=== PATIENT | male | born 1975 | race Caucasian/White ===

== ENCOUNTER 2024-02-05 21:04 | Emergency (ER) | payer OTHER, SELFPAY ==
[2024-02-05 21:06] VITALS: BP 150/101
[2024-02-05 21:43] VITALS: BMI 36.0
[2024-02-05 21:47] VITALS: BP 150/98
--- NOTE | 2024-02-05 21:56 | ED.GENMED ---
History of Present Illness
General
Chief Complaint: DVT/Possible Blood Clot
Source: patient
Time Seen by Provider: 02/05/24 21:50
History of Present Illness
History of Present Illness:
48yoM with a history of depression and ADHD presenting for evaluation of right calf swelling and pain. Symptoms began 4 days ago and have been gradually worsening. He denies any trauma to the area or inciting incident. Patient was seen at urgent
care today and was referred to the ED to rule out a DVT. Patient denies any chest pain or shortness of breath. No personal or family history of VTE. No recent travel.
Phy Exam
General Physical Exam
General Presentation: well appearing and no apparent distress
General age: appears stated age
General Skin: warm and dry
General Habitus: normal
General Mental: alert
ENT Exam
ENT Exam: normocephalic
Pulmonary Exam
Pulmonary Exam: no respiratory distress
Patricio Coma Scale
Eye Opening: Spontaneous
Verbal Response: Oriented
Motor Response: Obeys Commands
GCS Total Score: 15
Musculoskeletal Exam
Musculoskeletal Exam: other (2+ pitting edema to the R calf. +Ceci's sign. ROM of knee and ankle intact. 2+ DP pulse and sensation intact. )
Skin Exam
Skin Exam: normal color and warm/dry
Psychiatric Exam
Psychiatric Exam: normal mood/affect
Course
Orders/Labs/Results
Orders:
Orders
02/05/24 21:31
Venous Doppler Lwr Ext Rt [US Perip Venous LOWER Ext RT] Urgent
Comment:
Reason For Exam: swelling/pain
02/05/24 22:02
Complete Blood Count/With Diff Urgent
Comprehensive Metabolic Panel Urgent
PT/INR [Prothrombin Time] Urgent
02/05/24 23:00
Apixaban [Eliquis] 10 mg PO BID
Abnormal Lab Results
02/05/24
22:02
RBC 4.31 L 10^6/uL
(4.70-6.10)
MCH 32.5 H pg
(27.0-31.0)
Absolute Monos (auto) 1.0 H 10^3/uL
(0.1-0.6)
Monocytes % 11.5 H %
(1.7-9.3)
Glucose 109 H mg/dl
(70-99)
02/05/24 22:02
02/05/24 22:02
Vital Signs
Initial and Last Documented VS:
Initial Vital Signs
Temp Pulse Resp BP Pulse Ox
98.1 F 82 20 150/101 98
02/05/24 21:06 02/05/24 21:06 02/05/24 21:06 02/05/24 21:06 02/05/24 21:06
Last Documented Vital Signs
Temp Pulse Resp BP Pulse Ox
98.1 F 84 22 120/81 98
02/05/24 21:06 02/05/24 23:00 02/05/24 23:00 02/05/24 23:00 02/05/24 23:00
MDM/Problems Addressed
Differential Diagnosis Includes:
48yoM here with atraumatic R calf pain x 4 days. Sent here by urgent care for concern for DVT. No CP/SOB. He is afebrile and hemodynamically stable. He is well-appearing in no acute distress. There is localized swelling to the right calf on exam.
Compartments soft. RLE eurovascularly intact. Differential diagnosis includes but is not limited to: DVT, superficial thrombophlebitis, dependent edema, Armendariz's cyst
Initial ED plan: Check CBC, CMP, coags, and venous duplex.
*Critical Care Note
Total Time (30-74mins, 75-104mins- exclusive of procedures): Not Applicable
Update Note
Update Note:
Venous duplex is positive for DVT in the right posterior tibial and popliteal veins. No proximal clot noted. No indication for hospitalization. He was started on a course of Eliquis. First dose given in the ED. Unclear precipitant for DVT. He
was advised to follow-up with his PCP for screening for clotting disorders. Strict ED return precautions discussed including chest pain and shortness of breath. He expressed understanding and is agreeable to plan. Patient discharged in stable
condition.
ED Attending Note
-
Portions of this chart may have been created with voice recognition software.� Occasional wrong word or��sound alike� substitutions may have occurred due to the inherent limitations of voice recognition software.
Discharge Plan
Departure
Patient Disposition: Home (Routine Discharge)
Date of Disposition: 02/05/24
Time of Disposition: 23:08
Patient with high blood pressure during this ER visit?: Yes
Discharge Problem:
Deep vein thrombosis of right lower extremity
Instructions: Deep Vein Thrombosis (Blood Clots in the Legs) (DC), Apixaban
Prescriptions:
New
Eliquis DVT-PE Treat 30D Start 5 mg (74 tabs) tablets,dose pack
See Rx Instructions .ROUTE .COMPLEX Qty: 74 0RF
Rx Instructions:
orally per package directions
Referrals:
Roderick Price MD [Family Provider] -
Activity Restrictions/Additional Instructions:
Take Eliquis as prescribed.
Please call your family doctor tomorrow to schedule a close follow-up appointment.
Return to the ER with any worsening symptoms, chest pain, or shortness of breath.
Interventions
Interventions:
*Risk Screen - Suicide Last Done: 02/05/24 21:06
*General Assessment Last Done: 02/05/24 21:06
*Neglect/Abuse Screening Last Done: 02/05/24 21:06
ED- Fall Risk Assessment Last Done: 02/05/24 21:43
*ED COVID-19 Vaccine History Last Done: 02/05/24 21:43
*Nursing Disposition Last Done: 02/05/24 23:19
ED- Cardiac Assessment Last Done: 02/05/24 21:54
ED- Pulmonary Assessment Last Done: 02/05/24 21:54
ED-Peripheral Vascular Assessment Last Done: 02/05/24 21:54
ED-Skin Assessment Last Done: 02/05/24 21:54
Discharge Date and Time
Discharge Date/Time: 02/05/24 23:20
Print Language: MALAY
[2024-02-05 22:10] LABS: % Basophils 0.7 % (0-2); % Eosinophils 3.3 % (0-6); % Immature Granulocytes 0.1 % (0-0.5); % Lymphocytes 23.3 % (20.5-51.1); % Monocytes 11.5 % (1.7-9.3); % Neutrophils 61.1 % (42.2-75.2); Absolute Basophils 0.1 10^3/uL (0-0.2); Absolute Eosinophils 0.3 10^3/uL (0-0.7); Absolute Neutrophils 5.1 10^3/uL (1.4-6.5); Hematocrit 40.3 % (39.0-52.0); Mean Corp Hgb Conc. 34.7 g/dL (33.0-37.0); Mean Corpuscular Hgb 32.5 pg (27.0-31.0); Mean Corpuscular Volume 93.5 fL (80.0-94.0); Mean Platelet Volume 9.8 fL (7.4-10.4); Nucleated Red Blood Cells % 0 % (-); Platelet Count 168 10^3/uL (130-400); Red Blood Cell Count 4.31 10^6/uL (4.70-6.10); Red Cell Dist. Width 13.2 % (11.5-14.5); White Blood Cell Count 8.4 10^3/uL (4.8-10.8)
[2024-02-05 22:20] LABS: INR 1.01; PT 13.1 Sec (11.4-14.6)
[2024-02-05 22:25] LABS: ALT (SGPT) 25 U/L (0-50); AST (SGOT) 34 U/L (17-59); Alkaline Phosphatase 76 U/L (38-126); Blood Urea Nitrogen 14 mg/dl (9-20); Calcium 9.3 mg/dl (8.4-10.2); Carbon Dioxide 26 mmol/L (22-30); Chloride 105 mmol/L (98-107); Estimated Creatinine Clearance 124 ml/min; Glucose 109 mg/dl (70-99); Potassium 4.4 mmol/L (3.5-5.1); Sodium 139 mmol/L (135-145); Total Bilirubin 0.7 mg/dl (0.2-1.3); Total Protein 6.5 g/dl (6.3-8.2); eGFR > 60.00
[2024-02-05 23:00] VITALS: BP 120/81
[2024-02-05] MEDS: ELIQUIS 10 MG PO (23:15)
== END 2024-02-05 23:20 | disposition home or self-care (01) ==
LOC: EMR 21:04
PROVIDERS: Physician Assistant; EMERGENCY PHYSICIAN Emergency Medicine; FAMILY PHYSICIAN Family Medicine
DX: I82.441 Acute embolism and thrombosis of right tibial vein (principal); I82.431 Acute embolism and thrombosis of right popliteal vein
CPT/HCPCS: 99284; 80053; 85025; 85610; 93971